=== PATIENT | male | born 1950 | race Caucasian/White ===

== ENCOUNTER 2022-01-28 11:38 | Emergency (ER) | payer MEDICARE ==
[2022-01-28] MEDS ORDERED: Ibuprofen 600 MG TAB ONE (12:48)
[2022-01-28] MEDS ORDERED: Dexamethasone 4 MG TAB ONE (12:48)
[2022-01-28] MEDS ORDERED: Lidocaine 5% Patch TD SCH (13:00)
[2022-01-29] MEDS ORDERED: Transdermal Patch Removal TOP SCH (01:00)
== END 2022-01-28 13:30 | disposition home or self-care (01) ==
LOC: MADERS 11:38
DX: S80.01XA Contusion of right knee, initial encounter (principal); M54.31 Sciatica, right side; I10 Essential (primary) hypertension; E11.9 Type 2 diabetes mellitus without complications; W19.XXXA Unspecified fall, initial encounter; Z79.899 Other long term (current) drug therapy
CPT/HCPCS: J8540